=== PATIENT | female | born 1990 ===

== ENCOUNTER 2018-10-22 13:15 | Emergency (ER) | payer MEDICAID, OTHER ==
[~2018-10-22] VITALS: Ht 177.8 cm; Wt 95.5 kg
[2018-10-22 13:17] VITALS: BP 121/61
[2018-10-22] MEDS ORDERED: KETOROLAC 30 MG/1 ML IM ONE (14:00)
[2018-10-22] MEDS ORDERED: KETOROLAC 30 MG/1 ML ONE (15:22)
--- NOTE | 2018-10-22 15:59 | NUR ---
NO WALKER NEEDED PER DEPUTY THEY HAVE ONE IN [facility] FOR PT TO USE.
== END 2018-10-22 16:02 | disposition home or self-care (01) ==
LOC: ED 15:56
DX: S82.831A Other fracture of upper and lower end of right fibula, initial encounter for closed fracture (principal); W17.89XA Other fall from one level to another, initial encounter; Y93.89 Activity, other specified; Y92.89 Other specified places as the place of occurrence of the external cause; Y99.8 Other external cause status
CPT/HCPCS: 29505; 73560; 96372; 99283; J1885